=== PATIENT | male | born 1950 | race Caucasian/White ===

== ENCOUNTER 2016-11-16 14:29 | Outpatient (CLI) | payer BC, MEDICARE ==
--- NOTE | 2016-11-16 22:11 | ULT ---
TESTICULAR ULTRASOUND 11/16/16 Ultrasonography of the scrotum was performed for evaluation of tenderness. Documentary images and wo rksheets were provided and reviewed. Both testicles are normal in appearance and both have good blood flow. There is no sign of mass in e ither. The right measures 4.5 x 2.6 x 3.8 cm and the left measures 3.1 x 1.5 x 2.9 cm. Each epididymis appeared normal. The right epididymal head was 1.3 cm in diameter and the left was 0 .8 cm. Both had good and normal blood flow. There was a small collection of fluid seen in the right side of the scrotum medially, just to the ri ght of midline. Its significance is unknown. IMPRESSION: 1. Normal testicular and epididymal findings. 2. Small collection of free fluid in the medial right scrotum of unknown significance. The pock et measured about 2.1 cm in maximal length. POS: HOME
== END 2016-11-16 14:30 | disposition home or self-care (01) ==
LOC: BURULT 14:29
PROVIDERS: ATTEND Surgery
DX: N50.9 Disorder of male genital organs, unspecified (principal)
CPT/HCPCS: 76870

== ENCOUNTER 2016-11-17 08:56 | Outpatient (CLI) | payer BC, MEDICARE ==
[2016-11-17 09:16] LABS: Clarity Clear (Clear); Glucose, Urine (Dipstick) Negative (Negative); Leukocyte Negative (Negative); Nitrite Negative (Negative); Protein, Urine (Dipstick) Negative (Neg-Trace); Urobilinogen 0.2 mg/dL (0.2-1.0); pH, Urine 5.5 (5.0-9.0)
[2016-11-17 09:17] LABS: Bacteria/HPF None Seen HPF (None Seen); Bilirubin Large (Negative); Blood, Urine Negative (Negative); RBC/HPF None Seen HPF (0-3); Squamous Epithelial 0-3 HPF (0-3); WBC/HPF None Seen HPF (0-3)
== END 2016-11-17 08:57 | disposition home or self-care (01) ==
LOC: BURLAB 08:56
PROVIDERS: ATTEND Surgery
DX: N50.9 Disorder of male genital organs, unspecified (principal)
CPT/HCPCS: 81001